=== PATIENT | male | born 1955 | race Caucasian/White ===

== ENCOUNTER 2016-05-03 11:21 | Emergency (ER) | payer OTHER ==
[2016-05-03 11:35] VITALS: TEMP 98.4
[2016-05-03] MEDS ORDERED: SODIUM CHLORIDE 0.9% 1,000 ML IV STA (11:55)
--- NOTE | 2016-05-03 11:57 | ED ---
General Adult HPI - General Chief complaint: Abdominal Pain Stated complaint: ABDOMINAL PAIN Time Seen by Provider: 05/03/16 11:47 Source: patient, family, RN notes reviewed Mode of arrival: ambulatory Limitations: no limitations - History of Present Illness Initial comments: Patient is a 60-year-old male who presents emergency room today with a chief complaint of increased abdominal pain that started yesterday. He does admit to pain that is constant but increases and comes and goes at times. Patient currently rates pain a 2/10 but states it did keep him up most the night with waves of pain. States he usually just has been for a few seconds to minutes time. Patient states she's never had similar symptoms in the past. He does admit that his had some looser stools. Patient denies any other points or associated symptoms. Patient denies any recent fever, chills, shortness of breath, chest pain, back pain, nausea or vomiting, numbness or tingling, dysuria or hematuria, constipation or diarrhea, headaches or visual changes, or any other complaints. - Related Data Home Medications Medication Instructions Recorded Confirmed Ascorbic Acid [Vitamin C] 500 mg PO DAILY 05/03/16 05/03/16 Aspirin EC [Ecotrin Low Dose] 81 mg PO DAILY 05/03/16 05/03/16 Cetirizine HCl [Zyrtec] 10 mg PO DAILY 05/03/16 05/03/16 Lisinopril [Zestril] 10 mg PO DAILY 05/03/16 05/03/16 Multivitamin/Iron/Folic Acid 1 tab PO DAILY 05/03/16 05/03/16 [Centrum Complete Multivit Tab] [place]-3 Fatty Acids/Fish Oil [Fish 1 cap PO DAILY 05/03/16 05/03/16 Oil 1,000 mg Softgel] Previous Rx's Medication Instructions Recorded Ciprofloxacin HCl [Cipro] 500 mg PO Q12HR #20 day 05/03/16 Hydrocodone/Acetaminophen [[place] 1 each PO Q6HR PRN #15 tab 05/03/16 5-325] metroNIDAZOLE [Flagyl] 500 mg PO TID 7 Days 05/03/16 Allergies Allergy/AdvReac Type Severity Reaction Status Date / Time No Known Allergies Allergy Verified 05/03/16 12:21 Review of Systems ROS Statement: Those systems with pertinent positive or pertinent negative responses have been documented in the HPI. ROS Other: All systems not noted in ROS Statement are negative. Past Medical History Past Medical History: Hypertension History of Any Multi-Drug Resistant Organisms: None Reported Past Surgical History: Hernia Repair, Orthopedic Surgery Additional Past Surgical History / Comment(s): right hip replaced, umbilical hernia, foot surgery Past Psychological History: No Psychological Hx Reported Smoking Status: Never smoker Past Alcohol Use History: None Reported Past Drug Use History: None Reported General Exam - General Exam Comments Initial Comments: General: The patient is awake and alert, in no distress, and does not appear acutely ill. Eye: Pupils are equal, round and reactive to light, extra-ocular movements are intact. No nystagmus. There is normal conjunctiva bilaterally. No signs of icterus. Ears, nose, mouth and throat: There are moist mucous membranes and no oral lesions. Neck: The neck is supple, there is no tenderness or JVD. Cardiovascular: There is a regular rate and rhythm. No murmur, rub or gallop is appreciated. Respiratory: Lungs are clear to auscultation, respirations are non-labored, breath sounds are equal. No wheezes, stridor, rales, or rhonchi. Gastrointestinal: Normal appearance of His abdomen. Normal bowel sounds. Abdomen soft on palpation. Mild tenderness left lower quadrant. No rebound tenderness. No guarding. No CVA tenderness. Musculoskeletal: Normal ROM, no tenderness. Strength 5/5. Sensation intact. Pulses equal bilaterally 2+. Neurological: A&O x 3. CN II-XII intact, There are no obvious motor or sensory deficits. Coordination appears grossly intact. Speech is normal. Skin: Skin is warm and dry and no rashes or lesions are noted. Psychiatric: Cooperative, appropriate mood & affect, normal judgment. Limitations: no limitations Course Vital Signs 05/03/16 05/03/16 11:32 13:32 Temperature 98.4 F Pulse Rate 79 74 Respiratory 16 18 Rate Blood Pressure 129/79 126/82 O2 Sat by Pulse 97 100 Oximetry Medical Decision Making - Medical Decision Making Patient reexamined at this time shows no signs of distress. Patient resting comfortably in the stretcher. Patient's abdomen soft on palpation. Patient's CT does show findings consistent with diverticulitis. Results were discussed with the patient. Options discussed with patient about admission to the hospital with IV antibiotics. Patient states he feels comfortable being discharged home. Patient will be started on Cipro and Flagyl. Given small prescription of [place] to use to go home with. Patient advised return to emergency room if there is any fever or increase or worsen his symptoms or any other concerns. - Lab Data Result diagrams: 05/03/16 12:20 05/03/16 12:20 Lab Results 05/03/16 05/03/16 05/03/16 Range/Units 12:20 12:20 12:20 WBC 10.7 H (3.8-10.6) k/uL RBC 5.38 (4.30-5.90) m/uL Hgb 16.7 (13.0-17.5) gm/dL Hct 50.5 (39.0-53.0) % MCV 93.8 (80.0-100.0) fL MCH 31.1 (25.0-35.0) pg MCHC 33.1 (31.0-37.0) g/dL RDW 13.1 (11.5-15.5) % Plt Count 261 (150-450) k/uL Neutrophils % 71 % Lymphocytes % 18 % Monocytes % 5 % Eosinophils % 2 % Basophils % 0 % Neutrophils # 7.7 (1.3-7.7) k/uL Lymphocytes # 2.0 (1.0-4.8) k/uL Monocytes # 0.6 (0-1.0) k/uL Eosinophils # 0.3 (0-0.7) k/uL Basophils # 0.0 (0-0.2) k/uL Sodium 139 (137-145) mmol/L Potassium 4.5 (3.5-5.1) mmol/L Chloride 103 (98-107) mmol/L Carbon Dioxide 25 (22-30) mmol/L Anion Gap 11 mmol/L BUN 19 (9-20) mg/dL Creatinine 1.20 (0.66-1.25) mg/dL Est GFR (MDRD) Af Amer >60 (>60 ml/min/1.73 sqM) Est GFR (MDRD) Non-Af >60 (>60 ml/min/1.73 sqM) Glucose 91 (74-99) mg/dL Calcium 9.4 (8.4-10.2) mg/dL Total Bilirubin 0.8 (0.2-1.3) mg/dL AST 16 L (17-59) U/L ALT 34 (21-72) U/L Alkaline Phosphatase 97 (38-126) U/L Total Protein 7.2 (6.3-8.2) g/dL Albumin 3.9 (3.5-5.0) g/dL Amylase 69 (30-110) U/L Lipase 56 (23-300) U/L Urine Color Light Yellow Urine Appearance Clear (Clear) Urine pH 6.0 (5.0-8.0) Ur Specific [place] 1.007 (1.001-1.035) Urine Protein Negative (Negative) Urine Glucose (UA) Negative (Negative) Urine Ketones Negative (Negative) Urine Blood Negative (Negative) Urine Nitrate Negative (Negative) Urine Bilirubin Negative (Negative) Urine Urobilinogen <2.0 (<2.0) mg/dL Ur Leukocyte Esterase Negative (Negative) Disposition Clinical Impression: Acute diverticulitis Disposition: HOME SELF-CARE Condition: Good Instructions: Diverticulitis (ED) Additional Instructions: Please use medication as prescribed. Please return to emergency room for any fever. Please follow-up with family doctor in the next 2 days. Please return to emergency room if the symptoms increase or worsen or for any other concerns. Prescriptions: Ciprofloxacin HCl [Cipro] 500 mg PO Q12HR #20 day Hydrocodone/Acetaminophen [[place] 5-325] 1 each PO Q6HR PRN #15 tab PRN Reason: Pain metroNIDAZOLE [Flagyl] 500 mg PO TID 7 Days Time of Disposition: 13:56
[2016-05-03 12:32] LABS: Appearance,Urine Clear (Clear); Basophils % (A) 0 %; Bilirubin,Urine Negative (Negative); CH 31.6; CHCM 33.8; Eosinophils # (A) 0.3 k/uL (0-0.7); Eosinophils % (A) 2 %; Glucose,Urine (UA) Negative (Negative); HCT 50.5 % (39.0-53.0); HDW 2.31; HGB 16.7 gm/dL (13.0-17.5); Ketones,Urine Negative (Negative); Leukocyte Esterase,Urine Negative (Negative); Luc # (Auto) 0.26; Luc % (Auto) 2; Lymphocytes % (A) 18 %; MCH 31.1 pg (25.0-35.0); MCHC 33.1 g/dL (31.0-37.0); MCV 93.8 fL (80.0-100.0); Mean Platelet Volume 6.8; Monocytes # (A) 0.6 k/uL (0-1.0); Monocytes % (A) 5 %; Neutrophils # (A) 7.7 k/uL (1.3-7.7); Neutrophils % (A) 71 %; Nitrite,Urine Negative (Negative); Protein,Urine Negative (Negative); RBC 5.38 m/uL (4.30-5.90); RDW 13.1 % (11.5-15.5); Specific Gravity,Urine 1.007 (1.001-1.035); UA Billing (MACRO vs. MICRO) CHEM; Urobilinogen,Urine <2.0 mg/dL (<2.0); WBC 10.7 k/uL (3.8-10.6); WBC (Perox) 10.82
[2016-05-03] MEDS ORDERED: RX INFO: IV CONTRAST WAS GIVEN 1 EACH MISC MISCELLANE PRN (12:38)
[2016-05-03 12:46] LABS: ALT 34 U/L (21-72); AST 16 U/L (17-59); Alkaline Phosphatase 97 U/L (38-126); Amylase 69 U/L (30-110); Anion Gap 11 mmol/L; Blood Urea Nitrogen 19 mg/dL (9-20); Calcium 9.4 mg/dL (8.4-10.2); Carbon Dioxide 25 mmol/L (22-30); Chloride 103 mmol/L (98-107); Glucose 91 mg/dL (74-99); Non-African American GFR(MDRD) >60 (>60 ml/min/1.73 sqM); Potassium 4.5 mmol/L (3.5-5.1); Sodium 139 mmol/L (137-145); Total Bilirubin 0.8 mg/dL (0.2-1.3); Total Protein 7.2 g/dL (6.3-8.2)
--- NOTE | 2016-05-03 13:05 | XR ---
Abdomen HISTORY: Pain Frontal view of the abdomen on 3 images No comparisons There is a spinal curvature. Lung bases are clear. No pneumoperitoneum or bowel obstruction. Air-flui d levels are present without bowel distention. Postop change noted to the right hip. IMPRESSION: Nonobstructive bowel gas pattern, consider enteritis
[2016-05-03 13:33] VITALS: BP 126/82; PULSE 74; RESP 18
--- NOTE | 2016-05-03 13:39 | CT ---
EXAMINATION TYPE: CT abdomen pelvis w con DATE OF EXAM: 05/03/2016 1:28 PM COMPARISON: Abdominal x-ray from earlier today. HISTORY: Generalized abdominal pain per order. CT DLP: 1653.80 mGycm, Automated Exposure Control for Dose Reduction was Utilized. CONTRAST: CT scan of the abdomen and pelvis is performed without oral and with IV Contrast, patient injected wi th 100 ml mL of Omnipaque 300. FINDINGS: LUNG BASES: Dependent atelectatic change is present bilaterally. LIVER/GB: No significant abnormality is appreciated. PANCREAS: No significant abnormality is seen. SPLEEN: No significant abnormality is seen. ADRENALS: No significant abnormality is seen. KIDNEYS: There is symmetric cortical medullary uptake and excretion from both kidneys without evidenc e of hydronephrosis seen bilaterally. Prominent bilateral parapelvic cysts are noted. BOWEL: Evaluation of bowel is slightly suboptimal due to lack of enteric contrast. There is no suspic ious small or large bowel dilatation seen. Normal-appearing appendix is seen from the cecum. There ar e diverticula scattered throughout the colon most pronounced in the sigmoid colon. Proximal to mid si gmoid colonic level there is moderate ill-defined fluid and fat stranding centered near axial image [address] findings are consistent with acute diverticulitis at this level anteriorly in the mid pelvis. N o free air is seen. No well-formed fluid collection or abscess is noted. PROSTATE/SEMINAL VESICLES: No gross abnormality seen. LYMPH NODES: No greater than 1cm abdominal or pelvic lymph nodes are appreciated. OSSEOUS STRUCTURES: Metallic hardware from right hip arthroplasty causes adjacent streak artifact weller iting evaluation of pelvic structures. There is moderate disc space narrowing with vacuum disc phenom enon and mild/moderate spurring at L4-L5 and L5-S1 levels. OTHER: There are moderate sized fat-containing inguinal hernias noted bilaterally. IMPRESSION: CT findings consistent with acute diverticulitis in the proximal to mid sigmoid colon at level of the anterior left midpelvis.
== END 2016-05-03 14:11 | disposition home or self-care (01) ==
LOC: EC 11:21
DX: K57.32 Diverticulitis of large intestine without perforation or abscess without bleeding (principal); I10 Essential (primary) hypertension; Z79.82 Long term (current) use of aspirin; Z79.899 Other long term (current) drug therapy
CPT/HCPCS: 36415; 80053; 82150; 83690; 85025; 81003; 74000; 74177; 99284; 96360; Q9967

== ENCOUNTER 2016-11-03 12:07 | Day surgery (SDC) | payer OTHER ==
[2016-11-02 09:01] VITALS: BMI 31.1
[~2016-11-03 12:07] MED LIST: LACTATED RINGERS 1,000 ML IV SCH; LIDOCAINE 1% 20 ML VIAL (10MG/ML) FOR IV START INTRADERMA PRN
[2016-11-03] MEDS ORDERED: LACTATED RINGERS 1,000 ML IV ONE (12:25)
[2016-11-03 12:32] VITALS: RESP 18; TEMP 98
[2016-11-03] MEDS ORDERED: PROPOFOL 10 MG/ML 20 ML VIAL IV ONE (13:18)
--- NOTE | 2016-11-03 13:51 | P.PCN ---
Date of Procedure: 11/03/16 Preoperative Diagnosis: Postoperative Diagnosis: Procedure(s) Performed: Procedure: Total colonoscopy. Preoperative diagnosis: Screening for neoplasia. Operative diagnosis: Sigmoid diverticulosis with no evidence of acute diverticulitis, strictures, polyps or cancer. Preparation: HalfLytely prep. Sedation: Was provided by anesthesia. Brief clinical history: The patient is a 61-year-old male who is referred for this evaluation for screening for neoplasia age being his risk factor. His prior exam was more than 10 years ago. The patient had a bout of diverticulitis within the last year, otherwise, no GI complaints, bleeding or anemia. Procedure: With the patient on his left lateral decubitus position and after informed consent and adequate sedation, the perianal area was inspected and it did not show any fissures or fistulas. There were no masses felt on digital rectal examination. The Olympus CFQ 160L video colonoscope was then inserted in the rectum in the usual fashion and advanced to the cecum. There were several diverticular orifices seen scattered in the sigmoid with no evidence of acute diverticulitis or strictures. The mucosa appeared healthy. No polyps or tumors were seen. I retroflexed the endoscope in the rectum before the endoscope was withdrawn. The patient tolerated the procedure well. Plan: The patient was reassured. Discussed dietary measures. He will follow up with you as planned and I recommended repeat exam in 10 years. Implants: Indications for Procedure: Operative Findings: Description of Procedure:
[2016-11-03 14:07] VITALS: BP 125/88; PULSE 68
== END 2016-11-03 14:22 | disposition home or self-care (01) ==
LOC: ORWHC2ENDO 12:07
DX: Z12.11 Encounter for screening for malignant neoplasm of colon (principal); K57.30 Diverticulosis of large intestine without perforation or abscess without bleeding; I10 Essential (primary) hypertension; M19.90 Unspecified osteoarthritis, unspecified site; Z79.899 Other long term (current) drug therapy
CPT/HCPCS: J2704; G0121; 45378